=== PATIENT | female | born 1960 | race Caucasian/White ===

== ENCOUNTER 2018-09-28 11:33 | Emergency (ER) | payer BC ==
[~2018-09-28] VITALS: Ht 180.3 cm; Wt 118.2 kg
[2018-09-28] MEDS ORDERED: mag hydrox/Alum hydrox/simeth 30ml oral suspension PO ONE (11:55)
[2018-09-28] MEDS ORDERED: LIDOcaine Viscous 15ml cup MM PRN (11:55)
[2018-09-28] MEDS ORDERED: HYDROcodone/acetaminophen 5mg/325mg tablet PO ONE (12:05)
[2018-09-28] MEDS ORDERED: ketorolac trometh inj. 60 MG/2 ML VIAL IM ONE (12:05)
[2018-09-28] MEDS ORDERED: ONDA4TAB6 PO (13:01)
[2018-09-28] MEDS ORDERED: MAG-54 PO (13:01)
[2018-09-28] MEDS ORDERED: HYDR-3965 PO (13:01)
[2018-09-28 13:13] VITALS: BP 137/86
== END 2018-09-28 13:15 | disposition home or self-care (01) ==
LOC: ER 11:33
DX: R10.13 Epigastric pain (principal); R10.84 Generalized abdominal pain; M54.9 Dorsalgia, unspecified; W18.49XA Other slipping, tripping and stumbling without falling, initial encounter; Y93.89 Activity, other specified; Y92.89 Other specified places as the place of occurrence of the external cause; Y99.9 Unspecified external cause status
CPT/HCPCS: 96372; 99283; J1885